=== PATIENT | male | born 1995 | race Caucasian/White ===

== ENCOUNTER 2017-03-06 09:22 | Emergency (ER) | payer OTHER ==
[2017-03-06 09:59] VITALS: BP 147/99
--- NOTE | 2017-03-06 10:34 | UC ---
Respiratory Complaint HPI - HPI Summary HPI Summary: The patient comes in today for: 1. Sore throat, "a lot of fatigue," cough, hemoptysis, diarrhea: Onset:4 days ago. Palliative/provocative: Dayquil helped. Quality: Soreness in the throat, "minor aches" of his back. Region: Throat, back. Severity: 7/10 Time: Constant. Associated symptoms: Fever: He did not take his temperature, but states that he has had cold chills. Rhinitis: clear. Cough: Dark green, productive cough. Sinus pressure: None. Had mononucleosis in 10th grade. Hemoptysis: streaks in the mucous after coughing fit and vomiting. Vomiting: Only with coughing--once last night once 2 days ago. Last BM: Yesterday--liquid. * - History of Current Complaint Chief Complaint: UCRespiratory Stated Complaint: COUGH,FATIGUE Time Seen by Provider: 03/06/17 10:13 Hx Obtained From: Patient - Allergies/Home Medications Allergies/Adverse Reactions: Allergies Allergy/AdvReac Type Severity Reaction Status Date / Time No Known Allergies Allergy Verified 03/06/17 09:55 Home Medications: Home Medications [id number] W/ APAP [Vicks Dayquil Severe ... 5-03-263-325 mg/15Ml] 30 ml PO Q6H PRN 03/06/17 [History Confirmed 03/06/17] PMH/Surg Hx/FS Hx/Imm Hx Previously Healthy: Yes Endocrine History Of: Denies: Diabetes, Thyroid Disease, Hyperthyroidism, Hypothyroidism, Dyslipidemia Cardiovascular History Of: Denies: Cardiac Disorders, Hypertension, Pacemaker/ICD, Myocardial Infarction , Congestive Heart Failure, Atrial Fibrillation, Deep Vein Thrombosis, Bleeding Disorders Respiratory History Of: Denies: COPD, Asthma, Bronchitis, Pneumonia, Pulmonary Embolism GI/ History Of: Denies: Gastroesophageal Reflux, Ulcer, Gastrointestinal Bleed, Gall Bladder Disease, Kidney Stones, Diverticulitis, Renal Disease, Urosepsis Neurological History Of: Denies: TIA, CVA, Dementia, Seizures, Migraine Psychological History Of: Denies: Anxiety, Depression, Bipolar Disorder, Schizophrenia, Post Traumatic Stress Disorder Cancer History Of: Denies: Lung Cancer, Colorectal Cancer, Breast Cancer, Prostate Cancer, Cervical Cancer Other History Of: Negative For: HIV, Hepatitis B, Hepatitis C, Anticoagulant Therapy - Surgical History Surgical History: None - Family History Known Family History: Negative: Cardiac Disease, Hypertension - Social History Occupation: Student Alcohol Use: Weekly Substance Use Type: Marijuana Substance Use Comment - Amount & Last Used: weekly Smoking Status (MU): Never Smoked Tobacco - Immunization History Most Recent Influenza Vaccination: Not the Season Review of Systems Constitutional: Negative Skin: Negative Eyes: Negative ENT: Sore Throat, Nasal Discharge Respiratory: Cough Cardiovascular: Negative Gastrointestinal: Negative, Vomiting, Diarrhea Genitourinary: Negative All Other Systems Reviewed And Are Negative: Yes Physical Exam Triage Information Reviewed: Yes Appearance: Well-Appearing, No Pain Distress, Well-Nourished Vital Signs: Initial Vital Signs Temp 98.8 F 03/06/17 09:51 Pulse 90 03/06/17 09:51 Resp 16 03/06/17 09:51 BP 147/99 03/06/17 09:51 Pulse Ox 100 03/06/17 09:51 Vital Signs Reviewed: Yes Eyes: Positive: Conjunctiva Clear. Negative: Discharge ENT: Positive: Hearing grossly normal. Negative: Pharyngeal erythema, Nasal congestion, Nasal drainage, TM bulging, TM dull, TM red, Tonsillar swelling, Tonsillar exudate Dental: Negative: Gross Decay/Caries @, Dental Fracture @ Neck: Positive: Supple, Nontender, No Lymphadenopathy. Negative: Nuchal Rigidity Respiratory: Positive: Lungs clear, No respiratory distress, No accessory muscle use Cardiovascular: Positive: RRR, No Murmur Abdomen Description: Positive: Nontender, No Organomegaly, Soft. Negative: Distended, Guarding Musculoskeletal: Positive: Strength Intact, ROM Intact Neurological: Positive: Alert, Muscle Tone Normal Psychological: Positive: Age Appropriate Behavior, Consolable UC Diagnostic Evaluation - Laboratory O2 Sat by Pulse Oximetry: 100 Diagnostic Studies Comment: Strep test: (-) Respiratory Course/Dx - Differential Dx/Diagnosis Provider Diagnoses: viral syndrome. Sinusitis/bronchitis. high blood pressure. Discharge - Discharge Plan Condition: Stable Disposition: HOME Patient Education Materials: Viral Syndrome (ED), Sinusitis (ED), Acute Bronchitis (ED), Hypertension (ED) Additional Instructions: Please see your primary care provider or us if you don't have one or can't get in timely to see how well you are doing and to see what your blood pressure is running. It was slightly high today.
== END 2017-03-06 11:06 | disposition home or self-care (01) ==
LOC: UCCORT 09:22
DX: B34.9 Viral infection, unspecified (principal); J32.9 Chronic sinusitis, unspecified; J40 Bronchitis, not specified as acute or chronic; R03.0 Elevated blood-pressure reading, without diagnosis of hypertension; F12.90 Cannabis use, unspecified, uncomplicated
CPT/HCPCS: 87651; 99202; G0463